=== PATIENT | female | born 1955 | race Caucasian/White ===

== ENCOUNTER 2018-07-10 04:22 | Inpatient (IN) | payer OTHER ==
[2018-07-10] MEDS: morphine 4 MG/ML VIAL IV ×3 (05:26→20:25)
[2018-07-10] MEDS ORDERED: KETOROLAC 30 MG INJ IV (05:30)
[2018-07-10] MEDS ORDERED: NACL 0.9% 3 ML SYG IV (05:30)
[2018-07-10] MEDS ORDERED: ACETAMINOPHEN 325 MG TAB PO (05:30)
[2018-07-10] MEDS: SOD CHLORIDE 0.9% 1,000 ML IV ×2 (05:43→15:01)
[2018-07-10 06:01] LABS: ADD MAN DIFF? NO
[2018-07-10 06:38] LABS: ALANINE AMINOTRANSFERASE 183 IU/L (13-69); ALBUMIN 4.2 g/dl (3.3-4.9); ALBUMIN/GLOBULIN RATIO 1.05; ALKALINE PHOSPHATASE 56 IU/L (42-121); ANION GAP 15 (5-13); ASPARTATE AMINO TRANSFERASE 416 IU/L (15-46); BILIRUBIN,INDIRECT 1.6 mg/dl (0-1.1); BILIRUBIN,TOTAL 1.7 mg/dl (0.2-1.3); BLOOD UREA NITROGEN 23 mg/dl (7-20); CALCIUM 9.1 mg/dl (8.4-10.2); CARBON DIOXIDE 18 mmol/L (21-31); CHLORIDE 107 mmol/L (97-110); CREATININE 1.06 mg/dl (0.44-1.00); Estimated GFR 53 mL/min (>60); GLUCOSE 103 mg/dl (70-220); MAGNESIUM 1.2 mg/dl (1.7-2.5); PHOSPHORUS 4.9 mg/dl (2.5-4.9); POTASSIUM 4.2 mmol/L (3.5-5.1); SODIUM 140 mmol/L (135-144); TOTAL PROTEIN 8.2 g/dl (6.1-8.1)
[2018-07-10 07:01] LABS: WHITE BLOOD COUNT 7.8 10^3/ul (4.8-10.8)
[2018-07-10 07:01] LABS: BASOPHILS % 0.5 % (0.0-2.0); EOSINOPHILS # 0.1 10^3/ul (0.0-0.5); EOSINOPHILS % 0.6 % (0.0-7.0); HEMATOCRIT 39.2 % (37.0-47.0); HEMOGLOBIN 12.9 g/dl (12.0-16.0); LYMPHOCYTES # 2.1 10^3/ul (0.8-2.9); LYMPHOCYTES % 26.4 % (15.0-51.0); MEAN CORPUSCULAR HEMOGLOBIN 30.7 pg (29.0-33.0); MEAN CORPUSCULAR HGB CONC 32.9 g/dl (32.0-37.0); MEAN CORPUSCULAR VOLUME 93.3 fl (82.0-101.0); MEAN PLATELET VOLUME 10.5 fl (7.4-10.4); MONOCYTE # 0.6 10^3/ul (0.3-0.9); MONOCYTES % 7.4 % (0.0-11.0); NEUTROPHILS % 63.8 % (39.0-77.0); NUCLEATED RED BLOOD CELLS% 0.4 /100WBC (0.0-0.0); PLATELET COUNT 170 10^3/UL (140-415); RED CELL DISTRIBUTION WIDTH 13.3 % (11.5-14.5)
[2018-07-10] MEDS: HEPARIN 5,000 UNIT/1 ML VIAL SC (08:41)
[2018-07-10] MEDS: HYDROCODONE/APAP (5/325) TAB PO (08:43)
[2018-07-10 08:54] LABS: LIPASE 78 U/L (23-300)
[2018-07-10] MEDS: CIPROFLOXACIN 400MG/D5W 200 ML IVPB (09:21)
[2018-07-10] MEDS: FOLIC ACID 1 MG TAB PO (09:37)
[2018-07-10] MEDS: MULTIVITAMINS THERAPEUTIC TAB PO (09:37)
[2018-07-10] MEDS: THIAMINE 100 MG TAB PO (09:37)
[2018-07-10] MEDS: METOPROLOL (XL) 50 MG TAB PO (18:50)
[2018-07-10] MEDS: LIDOCAINE/MYLANTA 40 ML BTL PO (20:24)
[2018-07-10] MEDS: PERMETHRIN 5% 60 GM CR TOP (20:24)
[2018-07-10] MEDS: MAGNESIUM SULFATE 3 GM in DEXTROSE 5% 100 ML IVPB (20:24)
[2018-07-10 21:39] LABS: ADD UMIC YES; UR ASCORBIC ACID NEGATIVE (NEGATIVE); UR BACTERIA FEW /HPF (NONE SEEN); UR BILIRUBIN (Dip) NEGATIVE (NEGATIVE); UR BLOOD (Dip) NEGATIVE (NEGATIVE); UR CLARITY SLIGHTLY CLOUDY (CLEAR); UR COLOR AMBER (YELLOW); UR GLUCOSE (Dip) NEGATIVE (NEGATIVE); UR KETONES (Dip) TRACE mg/dL (NEGATIVE); UR LEUKOCYTE ESTERASE (Dip) NEGATIVE Leu/ul (NEGATIVE); UR MUCUS FEW /HPF (NONE SEEN); UR NITRITE (Dip) NEGATIVE (NEGATIVE); UR RBC 5 /HPF (0-5); UR SPECIFIC GRAVITY (Dip) 1.054 (1.003-1.030); UR SQUAMOUS EPITHELIAL CELL MODERATE /HPF (FEW); UR TOTAL PROTEIN (Dip) 2+ mg/dl (NEGATIVE); UR UROBILINOGEN (Dip) 2+ mg/dL (NEGATIVE); UR WBC 14 /HPF (0-5)
[2018-07-11] MEDS: SOD CHLORIDE 0.9% 1,000 ML IV (01:44)
[2018-07-11] MEDS: morphine 4 MG/ML VIAL IV ×3 (01:46→20:30)
[2018-07-11 04:01] LABS: AMPHETAMINE/METHAMPHETAMINE Negative (NEGATIVE); BARBITURATES Negative (NEGATIVE); BENZODIAZEPINES Negative (NEGATIVE); CANNABINOIDS Negative (NEGATIVE); COCAINE Negative (NEGATIVE)
[2018-07-11 04:02] LABS: OPIATES Positive (NEGATIVE)
[2018-07-11 05:32] LABS: HAAIG REFLEX REFLEX FILED
[2018-07-11 05:35] LABS: ADD MAN DIFF? NO
[2018-07-11 05:43] LABS: WHITE BLOOD COUNT 5.1 10^3/ul (4.8-10.8)
[2018-07-11 05:43] LABS: BASOPHILS % 0.4 % (0.0-2.0); EOSINOPHILS # 0.2 10^3/ul (0.0-0.5); HEMOGLOBIN 12.3 g/dl (12.0-16.0); LYMPHOCYTES # 1.5 10^3/ul (0.8-2.9); LYMPHOCYTES % 29.1 % (15.0-51.0); MEAN CORPUSCULAR HEMOGLOBIN 31.4 pg (29.0-33.0); MEAN CORPUSCULAR HGB CONC 33.2 g/dl (32.0-37.0); MEAN CORPUSCULAR VOLUME 94.4 fl (82.0-101.0); MEAN PLATELET VOLUME 9.9 fl (7.4-10.4); MONOCYTE # 0.4 10^3/ul (0.3-0.9); MONOCYTES % 7.9 % (0.0-11.0); NEUTROPHILS % 59.4 % (39.0-77.0); PLATELET COUNT 147 10^3/UL (140-415); RED BLOOD COUNT 3.92 10^6/ul (4.20-5.40); RED CELL DISTRIBUTION WIDTH 13.5 % (11.5-14.5)
[2018-07-11 05:57] LABS: INR 1.54; PROTIME 18.6 Sec (11.9-14.9); PT RATIO 1.5
[2018-07-11 06:02] LABS: MAGNESIUM 2.1 mg/dl (1.7-2.5)
[2018-07-11 06:07] LABS: ALANINE AMINOTRANSFERASE 224 IU/L (13-69); ALBUMIN/GLOBULIN RATIO 1.08; ALKALINE PHOSPHATASE 51 IU/L (42-121); ANION GAP 10 (5-13); ASPARTATE AMINO TRANSFERASE 479 IU/L (15-46); BILIRUBIN,INDIRECT 0.6 mg/dl (0-1.1); BILIRUBIN,TOTAL 0.6 mg/dl (0.2-1.3); BLOOD UREA NITROGEN 24 mg/dl (7-20); CALCIUM 8.8 mg/dl (8.4-10.2); CARBON DIOXIDE 21 mmol/L (21-31); CHLORIDE 106 mmol/L (97-110); CREATININE 1.03 mg/dl (0.44-1.00); Estimated GFR 54 mL/min (>60); GLUCOSE 156 mg/dl (70-220); LIPASE 140 U/L (23-300); POTASSIUM 3.8 mmol/L (3.5-5.1); SODIUM 137 mmol/L (135-144); TOTAL PROTEIN 7.7 g/dl (6.1-8.1)
[2018-07-11 07:11] LABS: HEPATITIS B SURFACE ANTIGEN NEGATIVE (NEGATIVE)
[2018-07-11 07:28] LABS: HEPATITIS B CORE ANTIBODY REACTIVE (NEGATIVE); HIV 1&2 ANTIBODY NEGATIVE (NEGATIVE)
[2018-07-11 07:37] LABS: HEPATITIS C VIRAL ANTIBODY REACTIVE (NEGATIVE)
[2018-07-11] MEDS: THIAMINE 100 MG TAB PO (08:33)
[2018-07-11] MEDS: LIDOCAINE/MYLANTA 40 ML BTL PO ×3 (08:33→20:38)
[2018-07-11] MEDS: METOPROLOL (XL) 50 MG TAB PO (08:34)
[2018-07-11] MEDS: ENOXAPARIN 40 MG/0.4 ML SYG SC (08:36)
[2018-07-11] MEDS ORDERED: PERMETHRIN 5% 60 GM CR TOP (09:00)
[2018-07-11] MEDS: PANTOPRAZOLE (EC) 40 MG TAB PO ×2 (09:16→17:15)
[2018-07-11] MEDS: HYDROCODONE/APAP (5/325) TAB PO (14:43)
[2018-07-11] MEDS: INFLUENZA VIRUS VACCINE 0.5 ML (DISPENSING) IM* (17:00)
[2018-07-11] MEDS: OXYMETAZOLINE 0.05% 15 ML NAS SPRAY NASAL ×2 (17:14→20:30)
[2018-07-11] MEDS: ONDANSETRON 4 MG INJ IV (21:45)
[2018-07-12] MEDS: morphine 4 MG/ML VIAL IV ×3 (01:39→13:04)
[2018-07-12] MEDS: ALBUTEROL/IPRATROPIUM (NEB) 3 ML AMP HHN ×2 (01:58→22:45)
[2018-07-12] MEDS: PANTOPRAZOLE (EC) 40 MG TAB PO ×2 (05:45→17:46)
[2018-07-12 06:08] LABS: ADD MAN DIFF? NO
[2018-07-12 06:10] LABS: BASOPHILS % 0.2 % (0.0-2.0); EOSINOPHILS # 0.1 10^3/ul (0.0-0.5); EOSINOPHILS % 1.8 % (0.0-7.0); HEMATOCRIT 38.3 % (37.0-47.0); HEMOGLOBIN 12.2 g/dl (12.0-16.0); LYMPHOCYTES # 1.2 10^3/ul (0.8-2.9); LYMPHOCYTES % 27.6 % (15.0-51.0); MEAN CORPUSCULAR HGB CONC 31.9 g/dl (32.0-37.0); MEAN CORPUSCULAR VOLUME 97.5 fl (82.0-101.0); MEAN PLATELET VOLUME 9.9 fl (7.4-10.4); MONOCYTE # 0.4 10^3/ul (0.3-0.9); MONOCYTES % 8.2 % (0.0-11.0); NEUTROPHIL # 2.8 10^3/ul (1.6-7.5); NEUTROPHILS % 61.8 % (39.0-77.0); PLATELET COUNT 150 10^3/UL (140-415); RED BLOOD COUNT 3.93 10^6/ul (4.20-5.40); RED CELL DISTRIBUTION WIDTH 13.4 % (11.5-14.5)
[2018-07-12 06:10] LABS: WHITE BLOOD COUNT 4.5 10^3/ul (4.8-10.8)
[2018-07-12 06:41] LABS: ALANINE AMINOTRANSFERASE 230 IU/L (13-69); ALBUMIN 4.3 g/dl (3.3-4.9); ALBUMIN/GLOBULIN RATIO 1.13; ALKALINE PHOSPHATASE 55 IU/L (42-121); ANION GAP 8 (5-13); ASPARTATE AMINO TRANSFERASE 397 IU/L (15-46); BILIRUBIN,INDIRECT 0.4 mg/dl (0-1.1); BILIRUBIN,TOTAL 0.4 mg/dl (0.2-1.3); BLOOD UREA NITROGEN 26 mg/dl (7-20); CALCIUM 9.5 mg/dl (8.4-10.2); CARBON DIOXIDE 26 mmol/L (21-31); CHLORIDE 103 mmol/L (97-110); CREATININE 1.03 mg/dl (0.44-1.00); Estimated GFR 54 mL/min (>60); GLUCOSE 114 mg/dl (70-220); LIPASE 127 U/L (23-300); MAGNESIUM 1.9 mg/dl (1.7-2.5); SODIUM 137 mmol/L (135-144); TOTAL PROTEIN 8.1 g/dl (6.1-8.1)
[2018-07-12 07:29] LABS: AADO2 Arterial 146.4 mmHg (7.0-24.0); Allen Test ACCEPTAB; Arterial Base Excess -4.4 mmol/L (-3.0-3); Arterial Blood Gas Oxygen Sat 87.1 mmHG (95.0-98.0); Arterial COHb 0.4 % (0.0-3.0); Arterial Fraction of Oxyhgb 86.6 % (93.0-99.0); Arterial HCO3 21.7 mmol/L (22.0-26.0); Arterial MetHb 0.2 % (0.0-1.5); Arterial pCO2 43.6 mmhg (35-45); MODE NASAL CANNULA; Site Right Radial
[2018-07-12] MEDS: LIDOCAINE/MYLANTA 40 ML BTL PO (09:00)
[2018-07-12] MEDS: OXYMETAZOLINE 0.05% 15 ML NAS SPRAY NASAL ×2 (09:42→20:37)
[2018-07-12] MEDS: HYDROCODONE/APAP (5/325) TAB PO ×3 (09:43→23:30)
[2018-07-12] MEDS: THIAMINE 100 MG TAB PO (09:43)
[2018-07-12] MEDS: METOPROLOL (XL) 50 MG TAB PO (09:43)
[2018-07-12] MEDS: ENOXAPARIN 40 MG/0.4 ML SYG SC (09:44)
[2018-07-12 18:36] LABS: D-DIMER 1691.13 ng/ml (<460)
[2018-07-13] MEDS ORDERED: SELENIUM TOP (09:00)
[2018-07-13] MEDS ORDERED: [UNRECOGNIZED DRUG - OTHER] TOP (09:00)
[2018-07-14] MEDS ORDERED: FOLIC ACID 1 MG TAB PO (09:00)
[2018-07-18] MEDS ORDERED: MULTIVITAMINS THERAPEUTIC TAB PO (09:00)
== END 2018-07-13 03:45 | disposition left against medical advice (07) | DRG 391 ==
LOC: PP2 07-11 11:01
DX: R10.9 Unspecified abdominal pain (principal); J96.01 Acute respiratory failure with hypoxia; H54.7 Unspecified visual loss; F10.20 Alcohol dependence, uncomplicated; K57.90 Diverticulosis of intestine, part unspecified, without perforation or abscess without bleeding; E66.9 Obesity, unspecified; Z68.32 Body mass index [BMI] 32.0-32.9, adult; I10 Essential (primary) hypertension; F17.200 Nicotine dependence, unspecified, uncomplicated; K70.30 Alcoholic cirrhosis of liver without ascites; Z59.0 Homelessness; H54.40 Blindness, one eye, unspecified eye; K76.9 Liver disease, unspecified; R09.81 Nasal congestion; B19.20 Unspecified viral hepatitis C without hepatic coma; B86 Scabies; E80.6 Other disorders of bilirubin metabolism; Z87.19 Personal history of other diseases of the digestive system; R74.0 Nonspecific elevation of levels of transaminase and lactic acid dehydrogenase [LDH]; R62.7 Adult failure to thrive
CPT/HCPCS: 36600; 71045; 76705; 78226; 80053; 80307; 81001; 82803; 83690; 83735; 84100; 85025; 85378; 85610; 86703; 86704; 86709; 86803; 87081; 87086; 87338; 87340; 90686; 93970; 94664